=== PATIENT | female | born 1980 | race Caucasian/White ===

== ENCOUNTER 2022-01-12 10:42 | Day surgery (SDC) | payer OTHER ==
[~2022-01-12] VITALS: Ht 157.5 cm; Wt 77.1 kg
[2022-01-12] MEDS ORDERED: MIDAZOLAM 2 MG/2 ML VIAL ONE ×2 (12:57)
[2022-01-12] MEDS ORDERED: fentaNYL citrate 0.05 MG/ML VIAL ONE (12:57)
[2022-01-12] MEDS ORDERED: MIDAZOLAM 2 MG/2 ML VIAL IVP ONE (13:35)
== END 2022-01-12 14:25 | disposition home or self-care (01) ==
LOC: MDS 10:42 → MMU 10:44 → MDS 14:25
PROVIDERS: ATTEND Internal Medicine Gastroenterology
DX: K21.00 Gastro-esophageal reflux disease with esophagitis, without bleeding (principal); K44.9 Diaphragmatic hernia without obstruction or gangrene; J45.909 Unspecified asthma, uncomplicated; F32.9 Major depressive disorder, single episode, unspecified; Z88.1 Allergy status to other antibiotic agents; Z79.899 Other long term (current) drug therapy; Z20.822 Contact with and (suspected) exposure to COVID-19
CPT/HCPCS: 43235; 81025; 87426; J2250; J3010